=== PATIENT | female | born 1975 | race Two or more races ===

== ENCOUNTER 2019-09-07 09:29 | Emergency (ER) | payer OTHER ==
[~2019-09-07] VITALS: Ht 175.3 cm; Wt 143.0 kg
[2019-09-07 09:32] VITALS: BP 179/88
[2019-09-07 10:17] LABS: HCG UR SG 1.026 (1.003-1.030)
[2019-09-07 10:18] LABS: CULTURE INDICATED? YES; MICROSCOPIC INDICATED
[2019-09-07 10:23] LABS: BASOPHILS # (AUTO) 0.02 x10^3/uL (0-0.1); BASOPHILS % (AUTO) 0 % (0-1); EOSINOPHILS # (AUTO) 0.23 x10^3/uL (0-0.4); EOSINOPHILS % (AUTO) 3 % (1-7); LYMPHOCYTES # (AUTO) 1.37 x10^3/uL (1-3.4); LYMPHOCYTES % (AUTO) 19 % (22-44); MD NO; MEAN CORPUSCULAR HGB CONC 33.4 g/dL (32.4-35.8); MEAN CORPUSCULAR VOLUME 92.6 fL (80-100); MEAN PLATELET VOLUME 8.5 fL (7.4-10.4); MONOCYTES # (AUTO) 0.48 x10^3/uL (0.2-0.8); MONOCYTES % (AUTO) 7 % (2-9); NEUTROPHILS # (AUTO) 5.19 x10^3/uL (1.8-6.8); NEUTROPHILS % (AUTO) 71 % (42-75); PLATELET COUNT 341 x10^3/uL (130-400); RED BLOOD COUNT 4.61 x10^6/uL (3.82-5.3)
[2019-09-07 10:27] LABS: ALBUMIN 3.5 g/dL (3.4-5.0); ANION GAP 8 mmol/L (5-15); CHLORIDE 104 mmol/L (98-107)
[2019-09-07 10:30] LABS: ALANINE AMINOTRANSFERASE 70 U/L (12-78); ALKALINE PHOSPHATASE 79 U/L (45-117); BILIRUBIN,TOTAL 0.8 mg/dL (0.2-1.0)
[2019-09-07] MEDS ORDERED: metroNIDAZOLE 500 MG TABLET PO ONE (11:00)
[2019-09-07] MEDS ORDERED: CEFTRIAXONE 250 MG IM ONE (11:00)
[2019-09-07] MEDS ORDERED: LIDOCAINE-MPF 1%, 5ML ONE (11:08)
[2019-09-07] MEDS ORDERED: CEFTRIAXONE 250 MG ONE (11:08)
[2019-09-07] MEDS ORDERED: metroNIDAZOLE 500 MG TABLET ONE (11:08)
== END 2019-09-07 11:41 | disposition home or self-care (01) ==
LOC: ED 10:49
DX: A59.01 Trichomonal vulvovaginitis (principal)
CPT/HCPCS: 36415; 76830; 80053; 81001; 81025; 85025; 87086; 87491; 87591; 96372; 99284; J0696

== ENCOUNTER 2019-10-13 11:28 | Emergency (ER) | payer MEDICAID ==
[~2019-10-13] VITALS: Ht 175.3 cm; Wt 142.0 kg
[2019-10-13 11:36] VITALS: BP 142/94
--- NOTE | 2019-10-13 11:51 | NUR ---
lungs clear but dim bilat, large body habitus. no rhonchi/wheezing. as
[2019-10-13] MEDS ORDERED: OXYcodone/APAP 5/325MG TABLET PO ONE (12:00)
[2019-10-13] MEDS ORDERED: OXYcodone/APAP 5/325MG TABLET ONE (12:13)
[2019-10-13 12:27] LABS: RAPID INFLUENZA A Negative (Negative); RAPID INFLUENZA B Negative (Negative)
== END 2019-10-13 13:35 | disposition home or self-care (01) ==
LOC: ED 13:20
DX: J06.9 Acute upper respiratory infection, unspecified (principal)
CPT/HCPCS: 71046; 87400; 99284